=== PATIENT | female | born 1960 | race Caucasian/White ===

== ENCOUNTER → 2018-10-07 | Outpatient (CLI) | payer BC ==
--- NOTE | 2018-10-07 13:56 | PCVCIMAG ---
APPROVED REPORT Study performed: 10/07/2018 12:29:56 Exam: Stress Echocardiogram Indication: CAD , Hypertension,DM,YVONNE Patient Location: Echo lab Stress Nurse: Myah Dang RN Room #: 2 Status: routine Ht: 5 ft 4 in HR: 90 bpm BP: 122/68 mmHg Rhythm: NSR Medical History Medical History: Diabetes, HTN, Hyperlipidemia Cardiac Risk Factors: Hyperlipidemia, DM Previous Cardiac Procedures: none Pretest Chest Pain Characteristics: No chest pain Exercise History: Physically active Procedure The patient underwent an Exercise Stress Test using the Rayray Protocol. Blood pressure, heart rate, and EKG were monitored. An Echocardiogram was performed by non destructive testing technician in four stages in quad fashion. At peak stress, four selected images were obtained and placed side by side with resting images for comparison. Stress Test Details Stress Test: Exercise stress testing was performed using a Rayray protocol. HR Resting HR: 90 bpmMax Heart Rate (APMHR): 162 bpm Max HR Achieved: 146 bpmTarget HR (85% APMHR): 137 bpm % of APMHR: 90 Recovery HR: 95 bpm HR response to stress: Normal HR response to stress BP Resting BP: 122/68 mmHg Max BP: 160/72 mmHg Recovery BP: 142/66 mmHg BP response to stress: Normal blood pressure response to stress. ECG Resting ECG: Sinus Rhythm Stress ECG: Sinus Rhythm ST Change: Non-ischemic Maximum ST Deviation: 0 mm Arrhythmia: None Recovery ECG: Sinus Rhythm Recovery ST Change: Non-ischemic Recovery ST Deviation: 0 mm Recovery Arrhythmia: None Clinical Reason for Termination: Maximal effort Stress Symptoms: leg fatigue Exercise duration: 6 min 36 sec Highest Stage Achieved: Stage 3: 3.4 mph at 14% grade. Exercise capacity: 8.8 METs Overall Exercise Capacity for Age: Average Angina Score: None No complications. Stress ECG Conclusion The patient exercised according to the RAYRAY protocol for 6:36 mins; achieving a work level of 8.8 METS. The resting heart rate of 90 bpm keya to a maximum heart rate of 146 bpm. This value represent 90% of the maximal, age-predicted heart rate. The resting blood pressure of 122/68 mmHg, keya to a maximum blood pressure of 160/72 mmHg. The exercise test was stopped due to fatigue. Parra Treadmill Score is 6.0 which is Low risk. Pre-Stress Echo The resting Echocardiogram showed normal left ventricular contractility with an estimated Ejection Fraction of about 55-60%. Normal wall motion in all segments on baseline images. Post-Stress Echo The stress Echocardiogram showed normal left ventricular contractility with an estimated Ejection Fraction of about 65-70%. Normal augmentation of wall motion in all segments on post stress images. Clinical No clinical or ECG evidence for ischemia. Conclusion Clinical Response: Non-ischemic Exercise Capacity: Average Stress ECG Response: Non-ischemic Stress Echo Images: Non-ischemic No clinical, EKG or echocardiographic evidence for ischemia. No echocardiographic evidence for exercise induced ischemia. Normal stress echocardiogram with maximal exercise stress. No prior study available for comparison. <Conclusion> No clinical, EKG or echocardiographic evidence for ischemia. No echocardiographic evidence for exercise induced ischemia. Normal stress echocardiogram with maximal exercise stress.
== END | disposition home or self-care (01) ==
LOC: PCVCIMAG 12:28
PROVIDERS: ATTEND Internal Medicine
DX: I25.10 Atherosclerotic heart disease of native coronary artery without angina pectoris (principal); E11.9 Type 2 diabetes mellitus without complications; I10 Essential (primary) hypertension
CPT/HCPCS: 93325; 93351